=== PATIENT | male | born 1950 | race Caucasian/White ===

== ENCOUNTER → 2016-10-26 | Day surgery (SDC) | payer MEDICARE, OTHER ==
[~2016-10-26] MED LIST: BUPIVACAINE/EPINEPHRINE 0.5% 50 ML VIAL ONE; GLIM4TAB PO; GLUCTAB PO; LACTATED RINGER'S 1000 ML INJ 1,000 ML ONE; MIDAZOLAM HCL 2 MG/2 ML VIAL ONE; ONDANSETRON HCL 4 MG/2 ML VIAL IV PUSH ONE; PROPOFOL 200 MG/20 ML AMP IV ONE; SIMV40TA PO; TRIL135C PO; ceFAZolin 2 GM PREMIX 50 ML ONE
--- NOTE | 2016-10-26 15:56 | TN ---
cc: MUNA AGOSTO M.D. DATE OF SURGERY 10/26/2016 PREOPERATIVE DIAGNOSIS Bilateral inguinal hernia, umbilical hernia. POSTOPERATIVE DIAGNOSES Bilateral inguinal hernia, umbilical hernia. PROCEDURE Laparoscopic repair of bilateral inguinal hernia with mesh. Open repair umbilical hernia. SURGEON Dr. Muna Agosto ANESTHESIA General. INDICATIONS This a very pleasant 66-year-old gentleman who presents in consultation from Dr. Pete for evaluation of right inguinal hernia. He is able to push back it but it has gotten worse. It all started when he helped a tree gentleman clean out two large trees that had fallen in his yard. Physical examination demonstrated bilateral inguinal hernias and a small umbilical hernia. INTRAOPERATIVE FINDINGS Left spermatic cord lipoma, right indirect inguinal hernia sac and spermatic cord lipoma. Small umbilical hernia primarily repaired with mesh. ESTIMATED BLOOD LOSS Less than 10 ml. DESCRIPTION OF PROCEDURE IN DETAIL The patient identified as Neo Purdy taken to the operating room and placed in the supine position. Sequential compression devices were placed on bilateral lower extremities. Following induction of adequate general anesthesia, the patient's abdomen was prepped and draped in usual sterile fashion with Betadine. A time-out procedure was performed. Following completion of time-out procedure to everyone's satisfaction within the room, local anesthetic was placed in the infra and periumbilical area. Small transverse infraumbilical incision was carried out with scalpel and hemostasis was controlled with electrocautery. The umbilical skin was lifted off the herniated preperitoneal fatty tissue and the umbilical fascial defect was identified. Only preperitoneal fat was protruding through the defect. Attention was turned to identification of the anterior rectus fascia on the left side. This was incised in a vertical fashion. A preperitoneal plane was developed with surgeon's finger directed towards the pubic symphysis. The patient was placed in slight Trendelenburg position and a preperitoneal dissecting balloon was placed in preperitoneal space under direct laparoscopic view, inflated to a total of approximately 35 pumps. This allowed for identification of bilateral inferior epigastric vessels. Fat in the preperitoneal space covered the Shayne's ligaments and the pubic symphysis. The balloon was desufflated and removed and the structural balloon trocars were placed in preperitoneal space. Its balloon inflated with CO2 insufflation to level of 11 mmHg ensued. Two infraumbilical midline 5 mm trocars were then placed in preperitoneal space under direct laparoscopic view after incision of the skin with a scalpel. Attention was turned first to the left side. Blunt dissection allowed for identification of the pubic symphysis and Shayne's ligaments. There was no evidence of direct or femoral hernias. Blunt dissection lateral and posterior to the spermatic cord was performed and the anteromedial surface examined. Adherent peritoneum was reduced to the base of spermatic cord. Small defect was closed with a single 0-PDS Endoloop. Posterior laterally a large spermatic cord lipoma was identified and withdrawn from the inguinal canal into the preperitoneal space. A 4 x 6 inch piece of Atrium ProLite mesh was cut with an anterolateral slit placed around the spermatic cord and tacked into position with the Bard tacking device. Tacks were placed to approximate the anterolateral slit along the anterior border Shayne's ligament. A 2 x 6 inch piece of the mesh was placed across the anterolateral slit and held in position with the tacking device. One tack was placed inferomedially, once superior laterally and one superior medially. Photographs were taken of the completed repair. Attention was then turned the right side. Blunt dissection lateral and posterior to the spermatic cord was performed with a blunt graspers after for allowing for identification of the Shayne's ligament on the right side. There was no evidence of direct or femoral defect. The anteromedial surface of the spermatic cord was examined. There was an obvious indirect inguinal hernia sac which was chronic and densely adherent to surrounding cord structures. This was carefully reduced to the base of spermatic cord without creating a defect. Posterior laterally spermatic cord lipomatous tissue was removed from the inguinal canal into the preperitoneal space. A 4 x 6 inch piece of Atrium ProLite mesh was cut with an anterolateral slit, placed around the spermatic cord and tacked into position with a tacking device. A 2 x 6 inch piece of the mesh was placed across the anterolateral slit and held position with the tacking device. Tacks were placed to avoid inferolateral tack placement to avoid cutaneous nerve injury. Photographs were taken of the completed repairs. Remaining local anesthetic was placed in preperitoneal space. Trocars were removed under direct visualization and the preperitoneal space was actively desufflated taking care to hold the inferolateral mesh against the abdominal wall. The infraumbilical trocars were removed and the anterior rectus fascial incision was closed with a running 2-0 Vicryl suture. The umbilical hernia defect was closed with several interrupted inverted 0 Prolene sutures. The umbilicus was reformed with 2-0 Vicryl. Skin incisions were approximated 4-0 Monocryl subcuticular sutures and dressings were applied with Mastisol and one-half inch brown Steri-Strips. Gauze and Tegaderm were placed over the umbilicus. The patient tolerated the procedure without apparent complication. Sponge, needle and instrument counts were correct at the end of the case. MD DAYANA Ibrahim/RODOLFO /3:19 PM /3:38 PM
== END | disposition home or self-care (01) ==
LOC: ESDC 11:48
PROVIDERS: ATTEND Surgery Trauma Surgery
DX: K40.20 Bilateral inguinal hernia, without obstruction or gangrene, not specified as recurrent (principal); K42.9 Umbilical hernia without obstruction or gangrene
CPT/HCPCS: 00750; 00840; 49585; 49650; C1727; C1781; J0690; J2250; J2405; J3010; J7120